=== PATIENT | male | born 1970 | race Caucasian/White ===

== ENCOUNTER → 2017-03-24 | Outpatient (CLI) | payer OTHER ==
--- NOTE | 2017-03-24 22:29 | CT ---
EXAMINATION TYPE: CT chest wo/w con DATE OF EXAM: 03/24/2017 COMPARISON: CT abdomen pelvis 03/10/2017 HISTORY: 46-year-old male Right lower lobe pulmonary nodule. TECHNIQUE: Contiguous axial scanning of the chest after the administration of 100 mL of Omnipaque 300 . Coronal/sagittal reconstructions performed. CT DLP: 1194.00mGycm. Automatic exposure control utilized for a dose reduction. FINDINGS: The heart is normal size without pericardial effusion. Aorta is normal caliber in the chart vessel br anching anatomy. Scattered nonenlarged mediastinal lymph nodes. No thoracic lymphadenopathy by CT size criteria. There is mild diffuse bronchial wall thickening noted. Multiple right-sided pulmonary nodules are present. Most of these have decreased in size and some hav e resolved. One seems to be new, measuring 6 mm along the inferior major fissure axial image 45. Of note, the dominant 7 mm posterior basilar pulmonary nodule seen previously now measures 4 mm. A 4 mm posteromedial basilar right lower lobe pulmonary nodule previously measured 5 mm. A 7 mm and adjacent 3 mm pulmonary nodule are present in the anterior right midlung. Approximately three additional scattered 3 mm pulmonary nodules are noted in the right upper lobe. There is circumferential wall thickening of the distal esophagus with a small hiatal hernia. There seems to be some residual mild right-sided hydronephrosis of the partially visualized right kid neeru. Bones: No osseous destructive process. Old healed left anterolateral seventh and eighth rib fractures . IMPRESSION: 1. Numerous right-sided pulmonary nodules. The fact that many of the nodules previously seen at the [facility] are either smaller or have resolved as compared to 03/10/2017 suggests an infectious/inflam matory etiology. 2. One nodule measuring 6 mm along the inferior right major fissure seems to be new. Additional pulmo nary nodules are present on the right measuring up to 7 mm. 3. A 6 month follow-up exam can reassess. 4. Mild diffuse bronchial wall thickening suggests bronchitis or chronic asthma. 5. Note, circumferential wall thickening of the distal esophagus and a small hiatal hernia. Correlate for possible esophagitis. Direct visualization as indicated. 6. Residual mild right-sided hydronephrosis of the partially visualized right kidney.
== END | disposition home or self-care (01) ==
LOC: RADCTMAIN 19:05
PROVIDERS: ATTEND Internal Medicine
DX: R91.8 Other nonspecific abnormal finding of lung field (principal); J98.09 Other diseases of bronchus, not elsewhere classified; K44.9 Diaphragmatic hernia without obstruction or gangrene; K22.8 Other specified diseases of esophagus
CPT/HCPCS: 71270; Q9967

== ENCOUNTER 2017-04-12 13:20 | Day surgery (SDC) | payer OTHER ==
[2017-04-09 10:19] VITALS: BMI 29.2
[~2017-04-12 13:20] MED LIST: HYDROmorphone 0.5 MG/0.5 ML SYRINGE IVP PRN; LACTATED RINGERS 1,000 ML IV SCH; Pre Op ABX Message 1 EACH MISC MISCELLANE ONE
--- NOTE | 2017-04-12 13:24 | XR ---
EXAMINATION TYPE: XR KUB DATE OF EXAM: 04/12/2017 HISTORY: Pain Comparison: None. Single KUB is submitted for interpretation. Findings: Right renal calculi: Suspect small calculi overlying the lower pole of the right kidney measuring up to 3 mm. Overlying bowel content limits evaluation. Right ureteral calculi: Right ureteral calculus measuring 9 mm proximal one third right ureter. Left renal calculi: Large calculus lower pole left kidney measuring 1.4 cm with a smaller adjacent 5 mm calculus. Left ureteral calculi: None Visualized. Pelvic calcifications: Multiple calcifications overlying the region of the urinary bladder may relat e to calcifications within the urinary bladder versus prostate calcifications. Bowel gas pattern is unremarkable. No free air. No mass effects. IMPRESSION: 1. Right ureteral calculus as noted. 2. Left renal calculi as noted. 3. Prostate versus urinary bladder calcifications.
[2017-04-12 13:43] VITALS: RESP 16; TEMP 97.1
[2017-04-12] MEDS ORDERED: LIDOCAINE 1% 20 ML VIAL (10MG/ML) FOR IV START INTRADERMA ONE (13:57)
[2017-04-12] MEDS ORDERED: KETAMINE 10 MG/ML 20 ML VIAL ONE (14:51)
[2017-04-12] MEDS ORDERED: MIDAZOLAM 2 MG/2 ML VIAL ONE (14:51)
[2017-04-12] MEDS ORDERED: PROPOFOL 10 MG/ML 20 ML VIAL IV ONE (14:51)
[2017-04-12] MEDS ORDERED: fentaNYL (PF) 50 MCG/ML 2 ML AMP ONE (14:51)
--- NOTE | 2017-04-12 15:46 | P.OP ---
Date of Procedure: 04/12/17 Preoperative Diagnosis: Proximal right ureteral calculus Postoperative Diagnosis: Proximal right ureteral calculus Procedure(s) Performed: Extracorporal shockwave lithotripsy of proximal right ureteral calculus Anesthesia: MAC Surgeon: Micah Samson Estimated Blood Loss (ml): 0 Pathology: none sent Condition: stable Disposition: PACU Indications for Procedure: The patient's 46-year-old male with a history of intermittent right flank pain who was discovered to have a 6 x 8 mm calculus in the proximal right ureter on a computed tomography scan. Treatment options were reviewed with Dr. Jerome and the patient has elected to proceed with ESWL. Description of Procedure: The patient was taken to the operating suite and placed in the supine position on the fluoroscopy table. The proximal right ureteral calculus was localized using biplanar fluoroscopy. Intravenous sedation was given. Lithotripsy was performed using the Dornier compact delta unit. The patient was given 2500 shocks at a rate of 60 shocks per minute gradually increasing up to level 5. There appeared to be fragmentation of the calculus. Anesthesia was reversed and the patient was returned to the recovery room awake and in satisfactory condition. Patient be seen back in follow-up by Dr. Glover in 1 week at which time a KUB will be obtained.
[2017-04-12 16:35] VITALS: BP 113/82; PULSE 54
== END 2017-04-12 17:04 | disposition home or self-care (01) ==
LOC: ORWHC2ENDO 13:20
PROVIDERS: ATTEND Urology
DX: N20.1 Calculus of ureter (principal); K21.9 Gastro-esophageal reflux disease without esophagitis; J45.909 Unspecified asthma, uncomplicated; Z79.51 Long term (current) use of inhaled steroids; Z79.899 Other long term (current) drug therapy; Z87.891 Personal history of nicotine dependence
CPT/HCPCS: 74018; 50590; J2250; J3010; J2704

== ENCOUNTER → 2017-04-19 | Outpatient (CLI) | payer OTHER ==
--- NOTE | 2017-04-19 10:01 | XR ---
Abdomen HISTORY: Right ureteral calculus status post lithotripsy Frontal view of the abdomen submitted on 2 images and correlated to prior dated 04/12/2017 Paraspinal calcification on the right measures approximately 12 x 7 mm and shows at least a partially fragmented appearance, likely decrease in volume compared to prior exam. Left-sided calcification heredia perimposed over the lower pole of the left kidney is again noted and shows a similar appearance. Lung bases are clear. No evident pneumoperitoneum or bowel obstruction. Calcifications within the pelvis are again noted. IMPRESSION: Paraspinal location L3 on the right shows persistent calcification, there is again noted left nephrolithiasis as described.
== END | disposition home or self-care (01) ==
LOC: RADXRMAIN 09:13
PROVIDERS: ATTEND Urology
DX: N20.1 Calculus of ureter (principal)
CPT/HCPCS: 74018

== ENCOUNTER → 2017-05-03 | Outpatient (CLI) | payer OTHER ==
--- NOTE | 2017-05-03 10:47 | XR ---
EXAMINATION TYPE: XR KUB DATE OF EXAM: 05/03/2017 COMPARISON: 04/19/2017 HISTORY: Renal stones TECHNIQUE: One view abdominal series FINDINGS: The osseous structures are intact. The bowel gas pattern is nonspecific. Calcification along the lat eral margin of the acetabulum bilaterally can be associated with chronic acetabular labral tear. Right kidney: There is a punctate 2 mm calcification overlying the lower pole the right kidney. Zain tami calcification no longer identified. Left kidney: There are persisting calcification involving the lower pole calyx and infundibulum on th e left unchanged in appearance measuring approximately 1.5 cm in greatest dimension. Pelvis: There are numerous calcifications within the pelvis majority which appear to be related the p rostate gland. All calcifications are stable from the previous exam and felt to be most likely vascul ar. However, overlying the right SI joint compared to rounded calcific densities on the right measuring a pproximately 2 and 4.6 mm in diameter which was not seen with certainty in the previous exam and may represent fragmentation of the previous right paraspinal calcification within the distal ureter. IMPRESSION: 1. Right paraspinal calcification no longer seen, however, there are rounded densities overlying the region of the SI joint on the right measuring approximately 2 and 4.6 mm in diameter respectively whi ch may represent fragmentation of the previous right paraspinal calcification. Correlate clinically. 2. Stable lower pole 1.5 cm left infundibular and calyceal calcification.
== END | disposition home or self-care (01) ==
LOC: RADXRMAIN 09:30
PROVIDERS: ATTEND Urology
DX: N28.89 Other specified disorders of kidney and ureter (principal)
CPT/HCPCS: 74018

== ENCOUNTER → 2017-05-10 | Outpatient (CLI) | payer OTHER ==
--- NOTE | 2017-05-10 19:02 | CT ---
EXAMINATION TYPE: CT abdomen pelvis wo con DATE OF EXAM: 05/10/2017 COMPARISON: 03/10/2017 HISTORY: Right side flank pain. CT DLP: 1029 mGycm Automated exposure control for dose reduction was used. TECHNIQUE: Helical acquisition of images was performed from the lung bases through the pelvis. FINDINGS: Lung bases are clear. There is no pleural effusion. Heart size is normal. There is small hiatal herni a. Liver spleen pancreas gallbladder appear normal. Bile ducts are not dilated. There is no adrenal mass . There are multiple bilateral renal calculi and the largest is on the left side measures more than 1 c m. There is mild right-sided hydronephrosis and hydroureter. There is a 6 mm calculus in the lower ri ght ureter. Left ureter is not dilated. There is no retroperitoneal adenopathy. There is no ascites. Appendix appears normal. I see no bony destructive process. Bladder distends smoothly. There is no sign of a pelvic mass. Ther e are numerous prostatic calcifications. IMPRESSION: THERE IS A LARGE CALCULUS IN THE LOWER RIGHT URETER THAT HAS MIGRATED FROM THE PROXIMAL URETER COMPAR ED TO OLD EXAM. MILD RIGHT-SIDED HYDRONEPHROSIS AND HYDROURETER. NUMEROUS RENAL CALCULI AND MORE ON T HE LEFT SIDE.
== END | disposition home or self-care (01) ==
LOC: RADCTMAIN 18:19
PROVIDERS: ATTEND Urology
DX: N13.2 Hydronephrosis with renal and ureteral calculous obstruction (principal); N13.4 Hydroureter
CPT/HCPCS: 74176

== ENCOUNTER → 2017-05-13 | Outpatient (CLI) | payer OTHER ==
[2017-05-13 16:09] LABS: Basophils # (A) 0.1 k/uL (0-0.2); Basophils % (A) 1 %; Eosinophils # (A) 0.3 k/uL (0-0.7); Eosinophils % (A) 3 %; HCT 43.3 % (39.0-53.0); HGB 14.2 gm/dL (13.0-17.5); Lymphocytes # (A) 1.9 k/uL (1.0-4.8); Lymphocytes % (A) 18 %; MCH 31.6 pg (25.0-35.0); MCHC 32.8 g/dL (31.0-37.0); MCV 96.4 fL (80.0-100.0); Mean Platelet Volume 6.6; Monocytes # (A) 0.7 k/uL (0-1.0); Monocytes % (A) 7 %; Neutrophils # (A) 7.3 k/uL (1.3-7.7); Neutrophils % (A) 70 %; Platelet Count 265 k/uL (150-450); RBC 4.49 m/uL (4.30-5.90); RDW 11.9 % (11.5-15.5); WBC 10.4 k/uL (3.8-10.6)
[2017-05-13 16:13] LABS: Calcium 9.7 mg/dL (8.4-10.2); Potassium 4.6 mmol/L (3.5-5.1)
== END | disposition home or self-care (01) ==
LOC: LABPAT 15:43
PROVIDERS: ATTEND Physician Assistant
DX: Z01.812 Encounter for preprocedural laboratory examination (principal); N20.2 Calculus of kidney with calculus of ureter
CPT/HCPCS: 36415; 80048; 85025

== ENCOUNTER 2017-05-17 10:33 | Day surgery (SDC) | payer OTHER ==
[2017-05-11 12:57] VITALS: BMI 29.2
[~2017-05-17 10:33] MED LIST changes: +DEXAMETHASONE SOD PHOSPHATE 10 MG/ML 1 ML VIAL IV ONE; -HYDROmorphone 0.5 MG/0.5 ML SYRINGE IVP PRN; -LACTATED RINGERS 1,000 ML IV SCH; +MIDAZOLAM 2 MG/2 ML VIAL IV PRN; +MORPHINE SULFATE 4 MG/ML SYRINGE IV PRN; +ONDANSETRON 4 MG/2 ML VIAL IVP ONE; +SCOPOLAMINE 1.5MG/72HR PATCH TRANSDERM ONE
--- NOTE | 2017-05-17 10:50 | XR ---
EXAMINATION TYPE: XR KUB DATE OF EXAM: 05/17/2017 CLINICAL DATA: 46-year-old male kidney stones, surgery today,, [facility] COMPARISON: 05/03/2017 FINDINGS: Lung bases are clear. Nonobstructive bowel gas pattern. Scattered mild stool. Suspect some prosthetic calcifications in combination with pelvic phlebolith. There is a 1.1 cm calcification in the right side of the pelvis new from prior that could represent a distal ureteral calculus. Left-sided renal calculi are obscured by bowel content. IMPRESSION: 1. 1.1 cm distal right ureteral calculus. 2. No left-sided renal calculi obscured by bowel content.
[2017-05-17 11:02] VITALS: RESP 16; TEMP 98.6
[2017-05-17] MEDS: LACTATED RINGERS 1,000 ML IV SCH ×2 (11:02→11:20)
[2017-05-17] MEDS ORDERED: LIDOCAINE 1% 20 ML VIAL (10MG/ML) FOR IV START INTRADERMA ONE (11:02)
[2017-05-17] MEDS ORDERED: fentaNYL (PF) 50 MCG/ML 2 ML AMP ONE (11:24)
[2017-05-17] MEDS ORDERED: FUROSEMIDE 10 MG/ML 2 ML VIAL ONE (11:24)
[2017-05-17] MEDS ORDERED: PROPOFOL 10 MG/ML 20 ML VIAL IV ONE (11:24)
[2017-05-17] MEDS ORDERED: MIDAZOLAM 2 MG/2 ML VIAL ONE (11:24)
--- NOTE | 2017-05-17 12:16 | P.OP ---
Date of Procedure: 05/17/17 Preoperative Diagnosis: Right Ureteral Calculus Postoperative Diagnosis: Same Procedure(s) Performed: Right extracorporal shockwave lithotripsy (ESWL) Anesthesia: MAC Surgeon: Luis A Jones Estimated Blood Loss (ml): 0 Pathology: none sent Condition: stable Disposition: PACU Indications for Procedure: This pleasant 46 yo was recently diagnosed with bilateral renal stones. He had back pain on the right that led to a kub identifying a 9mm right UPJ stone as well as two small renal stones. He also has a partial staghorn on the llp at 26 x12mm. He is intermittently symptomatic. He had ESWL for the 9 mm right UPJ calculus 04/12/2017. He has been having right flank pain for days. KUB x-ray shows an 11 mm right distal ureteral calculus, and he will undergo repeat ESWL. Operative Findings: Fragmentation appears to have recurred. Description of Procedure: The patient was taken to the operating room and placed on the Dornier Compact Delta II lithotripter in the supine position. The calculus was seen on biplanar fluoroscopy. Lasix 10 mg was given intravenously. Once the patient was properly positioned and sedated, lithotripsy was performed. The energy level was gradually increased per protocol, to an energy level of 6. A total of 3000 shocks were given at a rate of 80 shocks per minute. Fluoroscopy was utilized at a minimum to ensure proper positioning and determine the treatment status. The appearance of the calculus appeared to change, suggesting fragmentation had occurred. The patient tolerated the procedure well was taken to the recovery room in stable condition. Instructions were given to strain the urine, and the patient will follow-up within one week.
[2017-05-17 12:38] VITALS: BP 153/91; PULSE 63
== END 2017-05-17 12:51 | disposition home or self-care (01) ==
LOC: ORWHC2ENDO 10:33
PROVIDERS: ATTEND Urology
DX: N20.1 Calculus of ureter (principal); J45.909 Unspecified asthma, uncomplicated; K21.9 Gastro-esophageal reflux disease without esophagitis; Z79.51 Long term (current) use of inhaled steroids; Z79.899 Other long term (current) drug therapy
CPT/HCPCS: 74018; 50590; J2250; J1100; J1940; J2405; J3010; J2704

== ENCOUNTER → 2017-05-24 | Outpatient (CLI) | payer OTHER ==
--- NOTE | 2017-05-24 15:43 | XR ---
Abdomen HISTORY: Right-sided kidney stones, status post lithotripsy Frontal view of the abdomen submitted on 2 images and correlated to prior CT 05/10/2017, abdomen 2017 Multiple calcifications in the right hemipelvis. Decreased in size, minimal residual calcifications a re present at the level of the distal right ureter measuring approximately 2 to 3 mm each. Prostate c alcifications, vascular calcifications again noted in the pelvis. There is a calcification superimpos ed over the lower pole of the left kidney measuring approximately 2.4 cm x 1.2 cm, partial staghorn f actors. Calcification superimposed over the lower pole of the right kidney measuring 3 mm. IMPRESSION: Interval lithotripsy at the level of the distal right ureter. Bilateral nephrolithiasis. Additional findings above.
== END | disposition home or self-care (01) ==
LOC: RADXRMAIN 12:31
PROVIDERS: ATTEND Urology
DX: N20.0 Calculus of kidney (principal)
CPT/HCPCS: 74018

== ENCOUNTER → 2019-08-23 | Outpatient (CLI) | payer BC | END | disposition home or self-care (01) | LOC: LABWHC1 07:33 | PROVIDERS: ATTEND Family Medicine | DX: Z11.59 Encounter for screening for other viral diseases (principal) ==

== ENCOUNTER → 2019-12-13 | Outpatient (CLI) | payer BC ==
[2019-12-13 12:38] LABS: Basophils # (A) 0.1 k/uL (0-0.2); Basophils % (A) 2 %; Eosinophils # (A) 0.4 k/uL (0-0.7); Eosinophils % (A) 5 %; HCT 45.5 % (39.0-53.0); HGB 14.7 gm/dL (13.0-17.5); Lymphocytes # (A) 2.5 k/uL (1.0-4.8); Lymphocytes % (A) 34 %; MCH 32.1 pg (25.0-35.0); MCHC 32.3 g/dL (31.0-37.0); MCV 99.3 fL (80.0-100.0); Mean Platelet Volume 7.4; Monocytes # (A) 0.5 k/uL (0-1.0); Monocytes % (A) 7 %; Neutrophils # (A) 3.8 k/uL (1.3-7.7); Neutrophils % (A) 51 %; Platelet Count 326 k/uL (150-450); RBC 4.58 m/uL (4.30-5.90); RDW 12.3 % (11.5-15.5); WBC 7.4 k/uL (3.8-10.6)
== END | disposition home or self-care (01) ==
LOC: LABPAT 09:51
PROVIDERS: ATTEND Orthopaedic Surgery
DX: Z01.818 Encounter for other preprocedural examination (principal); G56.01 Carpal tunnel syndrome, right upper limb; M65.341 Trigger finger, right ring finger
CPT/HCPCS: 80051; 85025

== ENCOUNTER → 2019-12-14 | Day surgery (SDC) | payer BC ==
[2019-12-13 08:44] VITALS: BMI 26.6
--- NOTE | 2019-12-13 21:02 | HP ---
HISTORY AND PHYSICAL DATE OF SURGERY: 12/14/2019 Kye Joe is a 48-year-old patient seen with symptomatic right carpal tunnel syndrome as well as a symptomatic right ring finger trigger finger. We discussed options for treatment. He elected to proceed with surgical intervention to include decompression, right median nerve, and release A1 dionisio, right ring finger. Consent regarding the procedure was obtained. PAST MEDICAL HISTORY: Asthma, depression, gastroesophageal reflux disease. PAST SURGICAL HISTORY: Colonoscopy. DAILY MEDICATIONS: Albuterol, Prilosec, Singulair, Claritin. ALLERGIES: NONE. SOCIAL HISTORY: He denies current tobacco use. PHYSICAL EVALUATION OF THE RIGHT HAND: He has a positive carpal compression and carpal Tinel's causing numbness and tingling throughout the median nerve distribution. He has some decreased sensation throughout the median nerve distribution. There is tenderness along the A1 dionisio of the right ring finger. There is clicking and catching with range of motion of the right ring finger. There is a good radial pulse present. There is good perfusion distally. RADIOGRAPHS: Radiographs of the right hand revealed no osseous abnormality. An EMG of the upper extremities revealed carpal tunnel syndrome. IMPRESSION: 1. Right carpal tunnel syndrome. 2. Right ring finger trigger finger. 3. Asthma. 4. Gastroesophageal reflux disease. PLAN: 1. Decompression, right median nerve. 2. Release A1 dionisio, right ring finger. MMODL / IJN: [id number] /
[~2019-12-14] MED LIST changes: +BUPIVACAINE (PF) 0.25% 30 ML VIAL SQ ONE; +HYDROmorphone 0.5 MG/0.5 ML SYRINGE IVP PRN; +LACTATED RINGERS 1,000 ML IV ONE; +LACTATED RINGERS 1,000 ML IV SCH; +LIDOCAINE 1% (10MG/ML) FOR IV START INTRADERMA ONE; -MIDAZOLAM 2 MG/2 ML VIAL IV PRN; +MIDAZOLAM 2 MG/2 ML VIAL ONE; -MORPHINE SULFATE 4 MG/ML SYRINGE IV PRN; +PROPOFOL 10 MG/ML 20 ML VIAL IV ONE; -Pre Op ABX Message 1 EACH MISC MISCELLANE ONE; -SCOPOLAMINE 1.5MG/72HR PATCH TRANSDERM ONE; +fentaNYL (PF) 50 MCG/ML 2 ML AMP ONE
[2019-12-14 14:50] VITALS: TEMP 98.6
--- NOTE | 2019-12-14 17:28 | P.OP ---
Date of Procedure: 12/14/19 Preoperative Diagnosis: 1. Right carpal tunnel syndrome 2. Right ring finger trigger finger Postoperative Diagnosis: Same Procedure(s) Performed: 1. Decompression right median nerve 2. Release A1 dionisio right ring finger Anesthesia: MAC, local Surgeon: Arron Cook Estimated Blood Loss (ml): 1 Pathology: none sent Condition: stable Disposition: PACU Indications for Procedure: 48-year-old patient seen with symptomatic right carpal tunnel syndrome as well as a symptomatic right ring finger trigger finger. After treatment options were discussed with him, he elected to proceed with decompression of the right median nerve and release A1 dionisio right ring finger. Operative Findings: See description of procedure Description of Procedure: The patient was taken to the operative suite. Patient received preoperative IV antibiotics. The patient underwent IV sedation by department of anesthesia. A well-padded tourniquet was placed along the proximal right upper extremity. The right upper extremity was prepped and draped in the normal sterile fashion. Both proposed incision sites were infiltrated with quarter percent plain Marcaine totaling 15 mL. Once sufficient local analgesia was noted the extremity was elevated and the tourniquet was insufflated to 250. I made an incision at the distal volar wrist crease extending disc approximate 3 cm in line with the fourth metacarpal sharply through skin. I dissected down through the subcu soft tissues down to the palmar fascia to the transverse carpal ligament. I now made a small incision through the transverse carpal ligament. I completed the release proximally and distally with blunt Metzenbaums. I had good complete release of transcarpal ligament and good decompression of the nerve. I now turned my attention to the A1 dionisio area of the right ring finger. I made a small incision measuring 1 cm in that area. I dissected down to the A1 dionisio. I identified the A1 dionisio. I made a small incision through A1 dionisio. I now released it completely utilizing blunt tenotomy. There was complete release of the A1 dionisio with good excursion of the tendon noted at this point. Hemostasis achieved electrocautery wounds were irrigated both incisions were proximal nylon suture sterile dressings were applied followed by loose web roll and Coban. The tourniquet was released and immediate capillary refill of all digits noted. The patient was awakened, transferred to recovery stable condition.
[2019-12-14 17:46] VITALS: BP 124/76; PULSE 74; RESP 18
== END | disposition home or self-care (01) ==
LOC: OR 14:28
PROVIDERS: ATTEND Orthopaedic Surgery
DX: G56.01 Carpal tunnel syndrome, right upper limb (principal); M65.341 Trigger finger, right ring finger; J45.909 Unspecified asthma, uncomplicated; K21.9 Gastro-esophageal reflux disease without esophagitis; F32.9 Major depressive disorder, single episode, unspecified; Z79.899 Other long term (current) drug therapy; Z98.890 Other specified postprocedural states; Z87.442 Personal history of urinary calculi
CPT/HCPCS: 64721; 26055; J2250; J1100; J2405; J0690; J3010; J2704

== ENCOUNTER 2020-01-25 11:55 | Day surgery (SDC) | payer BC ==
[2020-01-23 15:05] VITALS: BMI 28.3
--- NOTE | 2020-01-24 18:35 | HP ---
HISTORY AND PHYSICAL DATE OF SURGERY: 01/25/2020 Kye Joe is a 49-year-old gentleman seen with a symptomatic left carpal tunnel syndrome as well as a symptomatic left ring finger trigger finger. We discussed options. He elected to proceed with surgical intervention to include decompression of left median nerve and and release of A1 dionisio, left ring finger. Consent regarding the procedure was obtained. PAST MEDICAL HISTORY: Asthma, gastroesophageal reflux disease. PAST SURGICAL HISTORY: Cholecystectomy, right median nerve decompression, right middle finger trigger release. DAILY MEDICATIONS: Naprosyn, Prilosec, Singulair, albuterol. ALLERGIES: NONE REPORTED. SOCIAL HISTORY: He denies current tobacco use. PHYSICAL EVALUATION OF THE LEFT HAND: He has a positive carpal compression and carpal Tinel's which cause numbness and tingling throughout the median nerve distribution. He does have some decreased sensation throughout the median nerve distribution. He has tenderness along the A1 dionisio area of the left ring finger. There is clicking and catching as well as triggering in that area. There is no tenderness along the remaining A1 dionisio areas. There is good perfusion and sensation distally. RADIOGRAPHS: Radiographs of the left hand revealed no osseous abnormality. An EMG of the upper extremities revealed carpal tunnel syndrome. IMPRESSION: 1. Left carpal tunnel syndrome. 2. Left ring finger trigger finger. 3. Asthma. 4. Gastroesophageal reflux disease. PLAN: 1. Decompression of the left median nerve. 2. Release A1 dionisio, left ring finger. MMODL / IJN: [id number] /
[~2020-01-25 11:55] MED LIST changes: -BUPIVACAINE (PF) 0.25% 30 ML VIAL SQ ONE; -LACTATED RINGERS 1,000 ML IV ONE; -LIDOCAINE 1% (10MG/ML) FOR IV START INTRADERMA ONE; -MIDAZOLAM 2 MG/2 ML VIAL ONE; -PROPOFOL 10 MG/ML 20 ML VIAL IV ONE; -fentaNYL (PF) 50 MCG/ML 2 ML AMP ONE
[2020-01-25] MEDS ORDERED: LIDOCAINE 1% (10MG/ML) FOR IV START INTRADERMA ONE (12:38)
[2020-01-25 12:39] VITALS: TEMP 97.3
[2020-01-25] MEDS ORDERED: BUPIVACAINE (PF) 0.25% 30 ML VIAL SQ ONE ×2 (13:57→14:11)
[2020-01-25] MEDS ORDERED: fentaNYL (PF) 50 MCG/ML 2 ML AMP ONE (14:04)
[2020-01-25] MEDS ORDERED: MIDAZOLAM 2 MG/2 ML VIAL ONE (14:04)
[2020-01-25] MEDS ORDERED: PROPOFOL 10 MG/ML 20 ML VIAL IV ONE (14:04)
[2020-01-25] MEDS ORDERED: KETAMINE 10 MG/ML 20 ML VIAL ONE (14:04)
[2020-01-25 14:43] VITALS: PULSE 70
--- NOTE | 2020-01-25 14:45 | P.OP ---
Date of Procedure: 01/25/20 Preoperative Diagnosis: 1. Left carpal tunnel syndrome 2. Left ring finger trigger finger Postoperative Diagnosis: Same Procedure(s) Performed: 1. Decompression left median nerve 2. Release A1 dionisio left ring finger Anesthesia: MAC, local Surgeon: Arron Cook Estimated Blood Loss (ml): 1 Pathology: none sent Condition: stable Disposition: PACU Indications for Procedure: 49-year-old patient seen with symptomatic left carpal tunnel syndrome as well as a symptomatic left ring finger trigger finger. After treatment options were discussed, he elected to proceed with surgical intervention to include decompression left median nerve and release A1 dionisio left ring finger. Operative Findings: See description of procedure Description of Procedure: The patient was taken to the operative suite. The patient underwent IV sedation by the primary a seizure. He had received preoperative IV antibiotics. A well- padded tourniquet placed proximal left upper extremity. The left upper extremity was prepped and draped in the normal sterile orthopedic fashion. The proposed incision sites were infiltrated with quarter percent plain Marcaine totaling 15 mL. Once sufficient local analgesia was noted the extremity was elevated and tourniquet was insufflated to 250. I now turned my attention to the carpal tunnel area. I made an incision beginning at distal volar wrist crease extending distal approximately 3 cm in line with the fourth metacarpal sharply through skin. I dissected down through the palmar fascia to the transverse carpal ligament. I now made a small incision through the transverse carpal ligament. I completed the release proximally and distally with blunt Metzenbaums. There was complete release of the transverse carpal ligament and good decompression of the nerve. I now turned my attention to the area A1 dionisio left ring finger. A 1 cm incision was made in the year the A1 dionisio. I dissected down to the A1 dionisio. Identified the A1 dionisio. I made a small sarthak incisions to the midportion A1 dionisio or. I released the A1 dionisio proximally and distally with blunt tenotomies. There was complete release of the A1 dionisio. There was good excursion of the tendon with no impingement. Both wounds were irrigated. Both incisions were repaired with nylon suture. Sterile dressings were applied to both incision sites. Sterile web roll was applied. The tourniquet was released. A sterile Coban was applied. The patient was awakened and transferred to recovery stable condition.
[2020-01-25 15:30] VITALS: BP 134/88; RESP 16
== END 2020-01-25 15:32 | disposition home or self-care (01) ==
LOC: OR 11:55
PROVIDERS: ATTEND Orthopaedic Surgery
DX: G56.02 Carpal tunnel syndrome, left upper limb (principal); M65.342 Trigger finger, left ring finger; J45.909 Unspecified asthma, uncomplicated; K21.9 Gastro-esophageal reflux disease without esophagitis; Z90.49 Acquired absence of other specified parts of digestive tract; Z86.69 Personal history of other diseases of the nervous system and sense organs; Z98.890 Other specified postprocedural states; Z87.39 Personal history of other diseases of the musculoskeletal system and connective tissue; Z79.1 Long term (current) use of non-steroidal anti-inflammatories (NSAID); Z79.899 Other long term (current) drug therapy; Z79.891 Long term (current) use of opiate analgesic; Z79.51 Long term (current) use of inhaled steroids
CPT/HCPCS: 64721; 26055; J2250; J1100; J0690; J2405; J3010; J2704

== ENCOUNTER → 2020-06-28 | Outpatient (CLI) | payer BC ==
[2020-06-28 11:33] LABS: Basophils % (A) 1.5 %; Eosinophils # (A) 0.28 X 10*3/uL (0.04-0.35); Eosinophils % (A) 4.3 %; HCT 46.1 % (39.6-50.0); HGB 15.6 g/dL (13.0-17.0); Lymphocytes # (A) 1.35 X 10*3/uL (0.90-5.00); Lymphocytes % (A) 20.9 %; MCH 33.1 pg (27.0-32.0); MCHC 33.8 g/dL (32.0-37.0); MCV 97.9 fL (80.0-97.0); Mean Platelet Volume 10.8 fL (9.5-12.2); Monocytes # (A) 0.62 X 10*3/uL (0.20-1.00); Monocytes % (A) 9.6 %; Neutrophils # (A) 4.09 X 10*3/uL (1.80-7.70); Neutrophils % (A) 63.4 %; Platelet Count 289 X 10*3/uL (140-440); RBC 4.71 X 10*6/uL (4.40-5.60); RDW 12.3 % (11.5-14.5); WBC 6.46 X 10*3/uL (4.50-10.00)
[2020-06-28 12:03] LABS: African American GFR (CKD) 100.6 (60.0-200.0); Albumin 4.3 g/dL (3.80-4.90); Albumin/Globulin Ratio 2.15 (1.60-3.17); Anion Gap 8.4 mmol/L (4.00-12.00); Calcium 9.9 mg/dL (8.7-10.3); Carbon Dioxide 29.6 mmol/L (21.6-31.8); Chol/HDL Ratio 2.32; LDL Cholesterol,Calculated 89.6 mg/dL (0.0-131.0); Non-African American GFR(CKD) 86.8 (60.0-200.0); PSA Annual Screen 0.6 ng/mL (0.0-4.0); Potassium 4.4 mmol/L (3.5-5.5); Total Bilirubin 0.6 mg/dL (0.2-1.2); Total Protein 6.3 g/dL (6.2-8.2); VLDL Calculation 10.4 mg/dL (5.00-40.00)
== END | disposition home or self-care (01) ==
LOC: LABWHC1 07:35
PROVIDERS: ATTEND Nurse Practitioner Family
DX: Z12.5 Encounter for screening for malignant neoplasm of prostate (principal); E55.9 Vitamin D deficiency, unspecified; R53.83 Other fatigue; E78.2 Mixed hyperlipidemia; I10 Essential (primary) hypertension; E87.8 Other disorders of electrolyte and fluid balance, not elsewhere classified
CPT/HCPCS: 80061; 80053; 84443; 85025; 82306; 36415; G0103

== ENCOUNTER 2021-01-11 15:26 | Emergency (ER) | payer BC, OTHER ==
[2021-01-11 16:05] VITALS: BP 130/91; PULSE 99; RESP 20; TEMP 98.5
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
[2021-01-11] MEDS ORDERED: HYDROcodone/APAP 5-325MG 1 EACH TAB PO STA (16:55)
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
--- NOTE | 2021-01-11 16:56 | XR ---
EXAMINATION TYPE: XR chest 2V DATE OF EXAM: 01/11/2021 COMPARISON: NONE HISTORY: Pain TECHNIQUE: 2 views FINDINGS: Heart and mediastinum are normal. Lungs are clear. Diaphragm is normal. Ribs appears normal . There is no sign of pleural effusion or pneumothorax. IMPRESSION: No active cardiopulmonary disease. Right clavicle fracture noted.
--- NOTE | 2021-01-11 17:01 | XR ---
EXAMINATION TYPE: XR hand complete RT DATE OF EXAM: 01/11/2021 COMPARISON: NONE HISTORY: Pain TECHNIQUE: 3 views FINDINGS: Metacarpals are intact. The fingers are intact. I see no fracture nor dislocation. The carp al bones are intact. IMPRESSION: Negative right hand exam. No fracture.
[2021-01-11] MEDS ORDERED: ACET/COD 300 MG/30 MG STARTER PACK 6 TAB BTL PO STA (17:06)
== END 2021-01-11 17:39 | disposition home or self-care (01) ==
LOC: EC 15:26
DX: S42.001A Fracture of unspecified part of right clavicle, initial encounter for closed fracture (principal); S80.811A Abrasion, right lower leg, initial encounter; S60.511A Abrasion of right hand, initial encounter; S80.212A Abrasion, left knee, initial encounter; J45.909 Unspecified asthma, uncomplicated; K21.9 Gastro-esophageal reflux disease without esophagitis; Z87.891 Personal history of nicotine dependence; Z79.1 Long term (current) use of non-steroidal anti-inflammatories (NSAID); Z79.899 Other long term (current) drug therapy; V28.4XXA Motorcycle driver injured in noncollision transport accident in traffic accident, initial encounter; Y92.410 Unspecified street and highway as the place of occurrence of the external cause
CPT/HCPCS: 71046; 72170; 99284

== ENCOUNTER 2021-01-22 12:39 | Day surgery (SDC) | payer BC, OTHER ==
[2021-01-21 10:47] VITALS: BMI 23.6
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
[~2021-01-22 12:39] MED LIST changes: -DEXAMETHASONE SOD PHOSPHATE 10 MG/ML 1 ML VIAL IV ONE; +DEXAMETHASONE SOD PHOSPHATE 4 MG/ML 1 ML VIAL IV ONE; -HYDROmorphone 0.5 MG/0.5 ML SYRINGE IVP PRN; +LIDOCAINE 1% (10MG/ML) FOR IV START INTRADERMA PRN; +MIDAZOLAM 2 MG/2 ML VIAL IV PRN; +SCOPOLAMINE 1.5MG/72HR PATCH TRANSDERM ONE; +fentaNYL (PF) 50 MCG/ML 2 ML AMP IVP PRN
[2021-01-22 13:26] VITALS: RESP 16
[2021-01-22] MEDS ORDERED: fentaNYL (PF) 50 MCG/ML 2 ML AMP IVP ONE (13:48)
[2021-01-22 13:50] LABS: Basophils # (A) 0.1 k/uL (0-0.2); Basophils % (A) 1 %; Eosinophils % (A) 0 %; HCT 40.9 % (39.0-53.0); HGB 14.2 gm/dL (13.0-17.5); Lymphocytes # (A) 0.7 k/uL (1.0-4.8); Lymphocytes % (A) 7 %; MCH 33.4 pg (25.0-35.0); MCHC 34.8 g/dL (31.0-37.0); MCV 95.9 fL (80.0-100.0); Mean Platelet Volume 7.2; Monocytes # (A) 0.5 k/uL (0-1.0); Monocytes % (A) 5 %; Neutrophils # (A) 8.5 k/uL (1.3-7.7); Neutrophils % (A) 85 %; Platelet Count 246 k/uL (150-450); RBC 4.26 m/uL (4.30-5.90); RDW 12.5 % (11.5-15.5); WBC 9.9 k/uL (3.8-10.6)
[2021-01-22 14:00] LABS: African American GFR (CKD) >90 (>60 ml/min/1.73 sqM); Anion Gap 21 mmol/L; Blood Urea Nitrogen 17 mg/dL (9-20); Carbon Dioxide 16 mmol/L (22-30); Chloride 99 mmol/L (98-107); Glucose 80 mg/dL (74-99); Non-African American GFR(CKD) 89 (>60 ml/min/1.73 sqM); Potassium 3.9 mmol/L (3.5-5.1); Sodium 136 mmol/L (137-145)
[2021-01-22] MEDS ORDERED: FAMOTIDINE 20 MG/2 ML VIAL IVP ONE (14:00)
--- NOTE | 2021-01-22 14:17 | P.ANPRN ---
Procedure Note - Anesthesia - Nerve Block Performed Right Interscalene Single Time Out Performed: Yes (1347) Date of Procedure: 01/22/21 Procedure Start Time: 13:48 Procedure Stop Time: 13:53 Location of Patient: PreOp Indication: Acute Post-Operative Pain, Requested by Surgeon Specifically requested for management of pain by DrMely: Fei Cesar Sedation Type: Sedate with meaningful contact maintained Preparation: Sterile Prep Position: Supine Catheter: None Needle Types: Pajunk Needle Gauge: 21 Ultrasound used to visualize needle placement: Yes Ultrasound used to observe medication spread: Yes Injectate: 0.5% Ropivacaine (see comment for volume) (30cc) Blood Aspirated: No Pain Paresthesia on Injection Noted: No Resistance on Injection: Normal Image Stored and Saved: Yes Events: Uneventful and Well Tolerated
[2021-01-22] MEDS ORDERED: ROPIVACAINE 5 MG/ML 30 ML VIAL ONE (14:34)
[2021-01-22] MEDS ORDERED: PROPOFOL 10 MG/ML 20 ML VIAL IV ONE (14:34)
[2021-01-22] MEDS ORDERED: fentaNYL (PF) 50 MCG/ML 2 ML AMP ONE (14:34)
[2021-01-22] MEDS ORDERED: MIDAZOLAM 2 MG/2 ML VIAL ONE (14:34)
[2021-01-22] MEDS ORDERED: SUCCINYLCHOLINE CHLORIDE 100 MG/5 ML SYR IV ONE (14:34)
[2021-01-22] MEDS ORDERED: LIDOCAINE 1% INJ 10MG/ML (20 ML MDV) ONE (14:34)
[2021-01-22] MEDS ORDERED: LACTATED RINGERS 1,000 ML IV ONE ×2 (17:15)
[2021-01-22 17:21] VITALS: TEMP 98.6
[2021-01-22] MEDS: HYDROmorphone 0.5 MG/0.5 ML SYRINGE IVP PRN ×2 (17:49→18:07)
[2021-01-22 19:08] VITALS: BP 162/86; PULSE 99
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
--- NOTE | 2021-01-23 08:01 | FL ---
EXAMINATION TYPE: FL guidance operating room, XR clavicle RT DATE OF EXAM: 01/22/2021 CLINICAL HISTORY: Displaced right clavicle fracture. TECHNIQUE: Fluoroscopy. Intraoperative 2 views right clavicle. COMPARISON: Outside right clavicle x-ray January 16, 2021. FINDINGS: Fluoroscopic guidance was provided during open reduction internal fixation procedure perfo rmed by Dr. Cesar. A total of 22 seconds of fluoroscopic time was utilized during the procedure and two spot intraoperative images are acquired. Intraoperative images obtained show placement of dorsal fixating plate oblique displaced fracture mid to distal right clavicle with improved alignment after reduction and fixation. IMPRESSION: As Above.
== END 2021-01-22 19:14 | disposition home or self-care (01) ==
LOC: OR 12:39
PROVIDERS: ATTEND Orthopaedic Surgery Hand Surgery
DX: S42.021A Displaced fracture of shaft of right clavicle, initial encounter for closed fracture (principal); V28.4XXA Motorcycle driver injured in noncollision transport accident in traffic accident, initial encounter; J45.909 Unspecified asthma, uncomplicated; K21.9 Gastro-esophageal reflux disease without esophagitis; Z87.442 Personal history of urinary calculi; Z98.890 Other specified postprocedural states; Z87.891 Personal history of nicotine dependence; Z79.899 Other long term (current) drug therapy
CPT/HCPCS: 64415; 76942; 80048; 85025; 73000; 23515; C1713; J2250; J1100; J0690; J2405; J2001; J3010; J2795; J0330; J2704; J1170

== ENCOUNTER 2022-11-25 14:00 | Emergency (ER) | payer OTHER ==
[2022-11-25 14:11] VITALS: TEMP 98.1
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
[2022-11-25 15:47] VITALS: BP 103/71; PULSE 60; RESP 18
== END 2022-11-25 15:47 | disposition home or self-care (01) ==
LOC: EC 14:00
DX: S06.0X0A Concussion without loss of consciousness, initial encounter (principal); J45.909 Unspecified asthma, uncomplicated; K21.9 Gastro-esophageal reflux disease without esophagitis; F12.90 Cannabis use, unspecified, uncomplicated; Z87.891 Personal history of nicotine dependence; Z79.51 Long term (current) use of inhaled steroids; Z79.899 Other long term (current) drug therapy; W22.8XXA Striking against or struck by other objects, initial encounter
CPT/HCPCS: 70450; 72125; 93005; 99284

== ENCOUNTER 2024-01-02 02:39 | Emergency (ER) | payer OTHER ==
[2024-01-02 02:45] VITALS: TEMP 98.1
[2024-01-02] MEDS: IPRATROPIUM-ALBUTEROL 3 ML NEB INHALATION STA (04:10)
[2024-01-02] MEDS: methylPREDNISolone SOD SUCCI 125 MG/2 ML VIAL IV STA (04:14)
[2024-01-02] MEDS: MAGNESIUM SULFATE-D5W PMX 1 GM in DEXTROSE/WATER 1 100ML.BAG IVPB STA (04:15)
[2024-01-02 04:52] LABS: Basophils # (A) 0.1 k/uL (0-0.2); Basophils % (A) 1 %; Eosinophils # (A) 0.7 k/uL (0-0.7); Eosinophils % (A) 5 %; HCT 43.8 % (39.0-53.0); HGB 14.9 gm/dL (13.0-17.5); Lymphocytes # (A) 3.7 k/uL (1.0-4.8); Lymphocytes % (A) 28 %; MCH 30.7 pg (25.0-35.0); MCV 90.2 fL (80.0-100.0); Monocytes # (A) 0.9 k/uL (0-1.0); Monocytes % (A) 7 %; Neutrophils # (A) 7.6 k/uL (1.3-7.7); Neutrophils % (A) 57 %; Platelet Count 373 k/uL (150-450); RBC 4.85 m/uL (4.30-5.90); RDW 13.2 % (11.5-15.5); WBC 13.3 k/uL (3.8-10.6)
[2024-01-02 05:06] LABS: ALT 14 U/L (4-49); AST 22 U/L (17-59); African American GFR (CKD) 66 (>60 ml/min/1.73 sqM); Albumin 4.4 g/dL (3.5-5.0); Alkaline Phosphatase 62 U/L (38-126); Anion Gap 10 mmol/L; Blood Urea Nitrogen 18 mg/dL (9-20); Calcium 9.9 mg/dL (8.4-10.2); Carbon Dioxide 30 mmol/L (22-30); Chloride 100 mmol/L (98-107); Glucose 125 mg/dL (74-99); Non-African American GFR(CKD) 57 (>60 ml/min/1.73 sqM); Potassium 4.1 mmol/L (3.5-5.1); Sodium 140 mmol/L (137-145); Total Bilirubin 0.4 mg/dL (0.2-1.3); Total Protein 7.3 g/dL (6.3-8.2)
[2024-01-02] MEDS: ALBUTEROL NEBULIZED 2.5 MG/3 ML INHALATION STA (06:13)
--- NOTE | 2024-01-02 06:13 | XR ---
EXAM: XR Chest, 2 Views CLINICAL HISTORY: ITS.REASON XR Reason: difficulty breathing TECHNIQUE: Frontal and lateral views of the chest. COMPARISON: X-ray dated 01/11/2021 FINDINGS: Lungs: Unremarkable. No consolidation. Pleural space: Unremarkable. No pneumothorax. Heart: Unremarkable. No cardiomegaly. Mediastinum: Unremarkable. Normal mediastinal contour. Bones/joints: Surgical plate and screw fixation of the right clavicle. Degenerative changes are seen in the spine. No acute fracture. IMPRESSION: No acute findings in the chest.
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
[2024-01-02 06:32] VITALS: BP 93/67; PULSE 87; RESP 14
== END 2024-01-02 07:12 | disposition home or self-care (01) ==
LOC: EC 02:39
CPT/HCPCS: 36415; 71046; 80053; 83605; 83735; 84484; 85025; 87636; 93005; 94640; 96365; 96375; 99285

== ENCOUNTER → 2024-09-15 | Outpatient (CLI) | payer OTHER ==
--- NOTE | 2024-09-15 15:24 | US ---
EXAMINATION TYPE: US kidneys/renal and bladder DATE OF EXAM: 09/15/2024 COMPARISON: Multiple previous- XR's 2020 CLINICAL INDICATION: Male, 53 years old with history of R31.9 HEMATURIA, UNSPECIFIED; Microscopic hem aturia, Hx stones with lithotripsy, and new onset of urinary frequency TECHNIQUE: Grayscale imaging of the bilateral kidneys and urinary bladder: FINDINGS: EXAM MEASUREMENTS: Right Kidney: 9.8 x 6.1 x 5.2 cm Left Kidney: 11.8 x 6.4 x 4.8 cm Post Void Residual Volume: NA mL Right Kidney: Echogenic foci with posterior shadowing and color twinkle seen lower pole Left Kidney: Multiple echogenic foci with posterior shadowing and color twinkle seen throughout kidne y ; Prominent renal pyramids Bladder: WNL Bilateral Jets seen: Yes Normal Post Void Residual: NA No masses are identified. The urinary bladder is anechoic. IMPRESSION: Multiple bilateral small nonobstructing renal calculi. [facility], , 09/15/2024 3:22 PM
== END | disposition home or self-care (01) ==
LOC: RADUSWWP 14:54
PROVIDERS: ATTEND Family Medicine
DX: N20.0 Calculus of kidney (principal)
CPT/HCPCS: 76770